=== PATIENT | female | born 1955 | race Hispanic/Latino ===

== ENCOUNTER 2021-12-28 23:28 | Emergency (ER) | payer BC ==
[~2021-12-28] VITALS: Ht 154.9 cm; Wt 75.3 kg
[2021-12-29] MEDS ORDERED: CLONIDINE HCL 0.1 MG TAB ONE ×2 (00:39→00:41)
[2021-12-29 01:25] VITALS: BP 177/81
[2021-12-29] MEDS ORDERED: CYCLOBENZAPRINE5 MG PO (01:36)
[2021-12-29] MEDS ORDERED: CLONIDINE HCL 0.1 MG TAB PO ONE (05:15)
== END 2021-12-29 01:25 | disposition home or self-care (01) ==
LOC: FSED 23:40
DX: I10 Essential (primary) hypertension (principal); E78.5 Hyperlipidemia, unspecified
CPT/HCPCS: 80053; 82553; 84484; 85025; 93005; 99283